=== PATIENT | male | born 1965 | race Caucasian/White ===

== ENCOUNTER 2017-08-19 14:28 | Inpatient (IN) | payer MEDICARE, MEDICAID ==
[~2017-08-19] VITALS: Ht 185.4 cm; Wt 220.0 kg
[2017-08-19 14:32] VITALS: BP 223/164
[2017-08-19] MEDS ORDERED: DIGOXIN250 MCG PO (14:38)
[2017-08-19] MEDS ORDERED: SYNTHROID100 MCG PO ×2 (14:38→20:29)
[2017-08-19] MEDS ORDERED: XANAX1 MG PO (14:39)
[2017-08-19] MEDS ORDERED: NORCO 5-325 TA1 EACH PO (14:39)
[2017-08-19] MEDS ORDERED: LOPRESSOR50 PO (14:40)
[2017-08-19] MEDS ORDERED: COUMADIN 2 MG TA2 M1 PO (14:40)
[2017-08-19] MEDS ORDERED: LASIX 20 MG TAB20 MG PO (14:40)
[2017-08-19] MEDS ORDERED: DULERA 200 MCG/13 GM INH (14:42)
[2017-08-19 15:12] LABS: HEMATOCRIT 34.8 % (42.0-52.0); HEMOGLOBIN 11.1 gm/dL (14.0-18.0); MCH 27.4 pg (26.0-34.0); MCHC 32.1 g/dL (28.0-37.0); MCV 85.3 fL (80.0-100.0); MPV 8.6 fl. (7.2-11.1); NUCLEATED RBCS 0 /100WBC; PLATELET COUNT* 153 thou/uL (150-400); RBC 4.07 mil/uL (4.50-6.00); RDW-CV 19.7 % (10.5-14.5); WBC 6.7 thou/uL (4.0-11.0)
[2017-08-19 15:16] LABS: ANION GAP 10 mmol/L (7-16); BUN 11 mg/dL (7-18); CALCIUM 8.1 mg/dL (8.5-10.1); CHLORIDE 105 mmol/L (98-107); CO2 25 mmol/L (21-32); GLUCOSE 162 mg/dL (70-99); POTASSIUM 3.6 mmol/L (3.5-5.1); SODIUM 140 mmol/L (136-145)
[2017-08-19 15:23] LABS: APTT 31.1 Seconds (25.0-31.3); INR 1.8; PROTIME 17.4 Seconds (9.20-11.50)
[2017-08-19 15:27] LABS: ALBUMIN 3.2 g/dL (3.4-5.0); ALKALINE PHOSPHATASE 91 U/L (46-116); NT-PRO BRAIN NAT PEPTIDE 1759 pg/mL (<300); SGOT 25 U/L (15-37); SGPT 47 U/L (30-65); TOTAL BILIRUBIN 1.6 mg/dL (<0.1-1.0); TOTAL PROTEIN 6.6 g/dL (6.4-8.2); TROPONIN-I LEVEL <0.06 ng/mL (<0.06)
[2017-08-19 15:46] LABS: ABSOLUTE BASOPHILS 0.1 thou/uL (0.0-0.2); ABSOLUTE EOSINOPHILS 0.1 thou/uL (0.0-0.7); ABSOLUTE LYMPHOCYTES 0.5 thou/uL (0.8-5.3); ABSOLUTE MONOCYTES 0.5 thou/uL (0.0-1.2); ABSOLUTE NEUTROPHILS 5.6 thou/uL (1.6-8.1); ANISOCYTOSIS 1+; HYPOCHROMASIA 2+; PLATELET ESTIMATE ADEQUATE
--- NOTE | 2017-08-19 18:10 | NUR ---
PT REFUSED FENTANYL AT THIS TIME, STATES ONLY DILAUDID WORKS.
--- NOTE | 2017-08-19 18:36 | NUR ---
DR GARCIA STATES TO HOLD OFF ON PT'S ESMOLOL AT THIS TIME DUE TO HR COMING DOWN. DILAUDID GIVEN
[2017-08-19 19:44] VITALS: BP 157/90
--- NOTE | 2017-08-19 20:04 | NUR ---
PER COLLETTE SHAIKH RN ESMOLOL HELD PER 'S LAD ORDER.
[2017-08-19 20:05] VITALS: BP 162/115
[2017-08-19] MEDS ORDERED: COUMADIN 5 MG TA5 M1 PO (20:28)
[2017-08-19] MEDS ORDERED: METOPROLOL TAR100 MG PO (20:31)
[2017-08-19 22:36] VITALS: BP 147/103
[2017-08-20] VITALS (7 sets, daily range): BP systolic 127–181; BP diastolic 82–109
[2017-08-20 01:18] LABS: HEMATOCRIT 34.7 % (42.0-52.0); MCH 27.2 pg (26.0-34.0); MCHC 31.9 g/dL (28.0-37.0); MCV 85.5 fL (80.0-100.0); MPV 8.1 fl. (7.2-11.1); RBC 4.05 mil/uL (4.50-6.00); WBC 8.2 thou/uL (4.0-11.0)
[2017-08-20 01:30] LABS: CALCIUM 8.2 mg/dL (8.5-10.1); MAGNESIUM 1.7 mg/dL (1.8-2.4); POTASSIUM 4.1 mmol/L (3.5-5.1)
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
--- NOTE | 2017-08-20 12:21 | NUR ---
CM ASSESSMENT: Pt is A&O. Resides at home with family. Not very forthcoming with info, stating "there have been several people that have asked me these same questions already, can't you just ask them what I said." Pt has a cpap, provided through [employer], though he says that he bought it online. Pt states that he was recently in [place]. Hx of SNF at [facility], [place], operated by [facility] and somewhere in [place]. Pt states that he is independent with ADLs, can cook, clean and continues to drive. Hx of HH, but does not remember the name of the agency and does not want HH again. Goal is to return home once medically stable. Following for dc needs.
--- NOTE | 2017-08-20 12:58 | NUR ---
ASSUMED CARE OF PT AT 0730. PT RESTING IN BED. PT A&0X4. COMPLAINS OF PAIN TO LEFT FOOT AND HEAD. TREATED WITH PRN DILAUDID IVP WITH PARTIAL RELIEF. PT ON 2L NC SAT 96%. DENIES ANY SHORTNESS OF BREATH. PT TRACING AFIB ON THE DIRECTOR TITLE. RATE IN THE 110'S-120'S. PT STATES HE STOPPED TAKING METOPROLOL DUE TO SIDE EFFECTS TO HIS LEFT FOOT. PT STATES HE DOES TAKE DIGOXIN. PT BLOOD PRESSURE ELEVATED AT APPROXIMATELY 1100 AT 181/109. TREATED WITH SCHEDULED HYDRALAZINE 20MG IVP WITH RELIEF. RECHECK BLOOD PRESSURE AT 127/82. HEART RATE CURRENTLY 110. CARDIOLOGY CONSULT IN PLACE. DR ABAD HERE TO SEE PT. ORDERS RECEIVED FOR DIGOXIN AND METOPROLOL PO AND DISCONTINUED HYDRALAZINE. DIGOXIN PO GIVEN. PT REFUSED TO TAKE METOPROLOL. REFER TO EMAR. BILATERAL LE EDEMA NOTED. PT UP AD HEIDI IN ROOM. VOIDS PER URINAL. AM ASSESSMENT CHARTED. MEDICATIONS PER MAR. PT REPOSITIONS SELF IN BED WITH REMINDERS. HOURLY ROUNDING OBSERVED. BED IN LOW POSITION. CALL LIGHT WITHIN REACH. WILL CONTINUE PLAN OF CARE.
[2017-08-20 13:04] LABS: CALCIUM 8.6 mg/dL (8.5-10.1); CREATININE 0.8 mg/dL (0.6-1.3); MAGNESIUM 1.8 mg/dL (1.8-2.4); POTASSIUM 3.3 mmol/L (3.5-5.1)
--- NOTE | 2017-08-20 16:22 | EKG ---
[place] [address] ELECTROCARDIOGRAM REPORT Name: LADONNA MARIA Room: [address] ADM IN .R.#: [id number] Admission: 08/19/17 Attend Phys: Chanel Cruz Discharge: Date of : 63 Report #: [id number] THIS REPORT FOR: //name// [facility] ED Test Date: 2017-08-19 Test Time: 14:35:26 Pat Name: LADONNA MARIA Department: Room: [facility] Gender: Sheriff: Mary Ann SEPULVEDA : 1965 Requested By: Clark Kaye Order Number: [id number] MD: Jovanny Simon Measurements Intervals [place] Rate: 108 P: UT: QRS: -4 QRSD: 89 T: 159 QT: 331 QTc: 444 Interpretive Statements Atrial fibrillation RSR' in V1 or V2, probably normal variant Borderline repolarization abnormality Baseline wander in lead(s) V2,V4 No previous ECG available for comparison Electronically Signed On 08-20-2017 16:21:47 FINANCIAL RISK MANAGER by Jovanny Simon [email or web address] <ELECTRONICALLY SIGNED> By: Jovanny Simon MD, [facility] 08/20/17 1621 1435 1435 Jovanny Simon MD, [facility] /EPI
--- NOTE | 2017-08-20 16:54 | 2DMMODE ---
[place] [address] 2 D/M-MODE ECHOCARDIOGRAM Name: LADONNA MARIA Room: [address] IN [facility]#: [id number] Admission: 08/19/17 Attend Phys: Blaire Acuña Discharge: Date of : 63 Date of Service: 08/20/17 1654 Report #: [id number] THIS REPORT FOR: //name// APPROVED REPORT Study performed: 08/20/2017 14:43:03 EXAM: Comprehensive 2D, Doppler, and color-flow Echocardiogram Patient Location: In-Patient Room #: 220 Status: routine BSA: 3.14 HR: 80 bpm BP: 139/101 mmHg Rhythm: Atrial Fibrillation Other Information Technically limited study due to body habitus. Indications Atrial Fibrillation Dyspnea Echo Enhancing Agent Indication: Endocardial border delineation Agent(s) / Amount(s) Used: Optison 3 cc 2D Dimensions LVEF(%): 70.64 (>50%) IVSd: 13.32 (7-11mm) LVOT Diam: 21.94 (18-24mm) LVDd: 53.47 mm PWd: 11.61 (7-11mm) Ascending Ao: 39.05 (22-36mm) LVDs: 31.87 (25-40mm) Aortic Root: 35.59 mm Huffman's LVEF: 70.64 % Aortic Valve AoV Peak Allan.: 1.49 m/s AO Peak Gr.: 8.89 mmHg LVOT Max P.30 mmHg AO Mean Gr.: 4.72 mmHg LVOT Mean P.28 mmHg LVOT Max V: 1.04 m/s AO V2 VTI: 23.21 cm LVOT Mean V: 0.70 m/s CARMELITA (VTI): 2.83 cm2 LVOT V1 VTI: 17.34 [place] [address] 2 D/M-MODE ECHOCARDIOGRAM Name: LADONNA MARIA Room: [address] IN .R.#: [id number] Admission: 08/19/17 Attend Phys: Blaire Acuña Discharge: Date of : 63 Date of Service: 08/20/17 1654 Report #: [id number] MV Decel. Time: 160.51 ms MV PHT: 46.55 ms MVA (PHT): 4.73 cm2 Pulmonary Valve PV Peak Allan.: 1.01 m/s PV Peak Gr.: 4.07 mmHg Tricuspid Valve TR Peak Gr.: 23.43 mmHg RVSP: 28.00 mmHg Left Ventricle The left ventricle is normal size. There is normal LV segmental wall motion. There is normal left ventricular wall thickness. Left ventricular systolic function is normal. The left ventricular ejection fraction is within the normal range. LVEF is 55-60%. This study is not technically sufficient to allow evaluation of the LV diastolic function due to atrial fibrillation. Right Ventricle The right ventricle is normal size. The right ventricular systolic function is normal. Atria The left atrium size is normal. The right atrium size is normal. Aortic Valve The aortic valve is normal in structure. No aortic regurgitation is present. There is no aortic valvular stenosis. Mitral Valve The mitral valve is normal in structure. There is no mitral valve regurgitation noted. No evidence of mitral valve stenosis. Tricuspid Valve The tricuspid valve is normal in structure. Trace tricuspid regurgitation. The RVSP is ___28____ mmHg. Pulmonic Valve The pulmonary valve is normal in structure. There is no pulmonic valvular regurgitation. Great Vessels The aortic root is normal in size. IVC is normal in size and collapses with >50% [place] [address] 2 D/M-MODE ECHOCARDIOGRAM Name: LADONNA MARIA Room: [address] IN [facility]#: [id number] Admission: 08/19/17 Attend Phys: Blaire Acuña Discharge: Date of : 63 Date of Service: 08/20/17 1654 Report #: [id number] Pericardium There is no pericardial effusion. <Conclusion> The left ventricle is normal size. There is normal left ventricular wall thickness. Left ventricular systolic function is normal. The left ventricular ejection fraction is within the normal range. LVEF is 55-60%. This study is not technically sufficient to allow evaluation of the LV diastolic function due to atrial fibrillation. The right ventricle is normal size. The left atrium size is normal. The aortic valve is normal in structure. The mitral valve is normal in structure. The tricuspid valve is normal in structure. Trace tricuspid regurgitation. The RVSP is ___28____ mmHg. IVC is normal in size and collapses with >50% inspiration There is no pericardial effusion. There is normal LV segmental wall motion. <ELECTRONICALLY SIGNED> By: Jovanny Simon MD, FACC 08/20/17 1654 165 165 Jovanny Simon MD, FACC /INF
--- NOTE | 2017-08-20 16:57 | NUR ---
NO ACUTE CHANGES THROUGHOUT SHIFT. REFER TO CHARTING. CARDIOLOGY HERE TO SEE PT. ORDERS RECEIVED FOR COREG 12.5 MG PO, LASIX 80 MG IVP AND SOLUMEDROL 40 MG IVP, HGB A1C AND ECHO. ECHO RESULTS BACK AT 55-60%. NO PLAN FOR HEART CATH AT THIS TIME PER CARDIOLOGY. POTASSIUM BEING REPLACED PER ELECTROLYTE PROTOCOL. REFER TO EMAR. REDRAW SCHEDULED FOR 2109. PT COMPLAINS OF PAIN TO LEFT FOOT AND HEAD. TREATED WITH PRN DILAUDID IVP AND HYDROCODONE PO WITH PARTIAL RELIEF. PT CONTINUES TO TRACE AFIB ON THE DIRECTOR OF MEDIA. RATE CURRENTLY IN THE 110'S. PT HEART RATE INCREASES TO 120'S-140'S WHEN STANDING TO VOID. ON 2L NC SAT UPPER 90'S. DENIES ANY SHORTNESS OF BREATH. PT WEARS CPAP AT [facility]. MEDICATIONS PER OCT. PT REPOSITIONS SELF IN BED WITH REMINDERS. HOURLY ROUNDING OBSERVED. BED IN LOW POSITION. CALL LIGHT WITHIN REACH. WILL CONTINUE PLAN OF CARE.
[2017-08-21] VITALS: BP 103/61
[2017-08-21 03:16] LABS: GLYCOHEMOGLOBIN (HGB A1C) 6.2 % (4.8-5.6)
[2017-08-21 04:00] VITALS: BP 120/80
--- NOTE | 2017-08-21 07:57 | NUR ---
Pt received hydromorphone for headache and L foot pain per request. Reports that pain overall is improved from previous day. VSS with BP greatly improved from previous day. Pt requested to hold last night's dose of lasix due to timing, and requesting that he receive morning dose and second dose in afternoon rather than late evening so he can sleep/rest. Will continue to monitor.
[2017-08-21 08:00] VITALS: BP 119/86
--- NOTE | 2017-08-21 10:27 | NUR ---
ASSUMED CARE OF PT AT 0730. PT RESTING AT EDGE OF BED. PT A&0X4. COMPLAINS OF PAIN TO LEFT FOOT. TREATED WITH PRN DILAUDID IVP WITH RELIEF. PT STATES HIS HEADACHE IS MUCH BETTER TODAY. PT TRACING AFIB ON THE LAUNDRY OPERATOR. RATE IN THE 100'S-110'S. RATE INCREASES WHEN PT STANDS TO VOID. PT ON 2L NC SAT 93%. PT DENIES ANY SHORTNESS OF BREATH. WHEEZES NOTED TO DAMON AND LLL. DIMINISHED ON THE RIGHT. PT UP SBA TO BATHROOM. GOAL FOR PT IS TO INCREASE ACTIVITY, DIURESIS, PAIN MGMT AND MONITOR BLOOD PRESSURE AND HEART RATE/RHYTHM. AM ASSESSMENT CHARTED. MEDICATIONS PER OCT. PT REPOSITIONS SELF IN BED WITH REMINDERS. HOURLY ROUNDING OBSERVED. BED IN LOW POSITION. CALL LIGHT WITHIN REACH. WILL CONTINUE PLAN OF CARE.
--- NOTE | 2017-08-21 11:27 | CON ---
[address] [address] CONSULTATION Name: LADONNA MARIA Room: [address] IN .R.#: [id number] Admission: 08/19/17 Attend Phys: Chanel Cruz Discharge: Date of : 63 Report #: [id number] THIS REPORT FOR: //name// CC: Saurav Acuña HISTORY OF PRESENT ILLNESS: The patient is a 52-year-old male patient with history of congestive heart failure, history of COPD and morbid obesity. He presented to the hospital with increasing shortness of breath and weight again. He had previous hospitalization with similar complaints, and he was seen by our group in other facility at [facility]. He presented with increasing shortness of breath and labored breathing with wheezes associated with chest pain without specific radiation. Also, he has left foot pain. He was found to be in irregular heart rate upon presentation to the hospital. He has history of obstructive sleep apnea, on CPAP at home, and he told me he set it up at 12 with 2 liter oxygen at night. REVIEW OF SYSTEMS: Positive for headache, especially today when he had the nitropatch. He denied any visual changes. He denies hearing loss. He denies dysphagia or swallowing difficulty. He denied dysuria, frequency, urgency, although his lower extremities are swollen, but he does not think it is worse than baseline for him. ALLERGIES: DILTIAZEM, LEVOFLOXACIN. HOME MEDICATIONS: He is on digoxin, hydrocodone, alprazolam, Lasix, Dulera, Coumadin, levothyroxine, metoprolol. PAST MEDICAL HISTORY: Includes COPD, CHF, atrial fibrillation, obstructive sleep apnea, although he has his CPAP at 12 cm of water with 2 liter oxygen. SOCIAL HISTORY: Per the patient, he never smoked. PHYSICAL EXAMINATION: VITAL SIGNS: On examination, he is on 2 liters oxygen with saturation more than 90%, pulse rate of 90, temperature 36.6, blood pressure 127/82. GENERAL APPEARANCE: Awake, alert, oriented, speaking in full sentences, in no distress. HEENT: Head normocephalic, atraumatic. Pupils are equal, reactive to light. NECK: Supple. CHEST: Diminished air movement bilaterally, prolonged expiratory phase with wheezes. HEART: S1, S2. ABDOMEN: Benign, soft, lax, obese and nontender. No masses felt. EXTREMITIES: Lower extremity edema noted with lymphedema. No calf tenderness. SKIN: Some chronic changes noted in the lower extremities. LYMPHATICS: No palp[place] [address] CONSULTATION Name: CROWLADONNA Chanel Room: [address] IN [facility]#: [id number] Admission: 08/19/17 Attend Phys: Chanel Cruz Discharge: Date of : 63 Report #: [id number] PSYCHIATRIC: Mood and affect, anxious. Good insight and judgment. LABORATORY DATA: His chest x-ray that was done in the ER shows signs of congestive heart failure with pulmonary vascular congestion. His white blood count is 6.7, hemoglobin 11.1, platelet of 153. His INR is 1.8 upon hospitalization with a creatinine of 1. IMPRESSION: 1. Acute hypoxic respiratory failure. 2. Congestive heart failure exacerbation. 3. Chronic obstructive pulmonary disease exacerbation. 4. Atrial fibrillation with rapid ventricular response. 5. Obstructive sleep apnea. I am going to defer diuresis and heart rate management to primary team/Cardiology Service. I agree with his scheduled nebulization treatment. I hear wheezes upon examination. He will benefit from steroids, so I am going to add some steroids for him. He is already on antibiotics, azithromycin and Rocephin, which will be continued. Continue CPAP at night. Continue 12-hour oxygen. Thank you for the consult. We will follow along with you. <ELECTRONICALLY SIGNED> By: Braxton Cr MD 08/21/17 1127 1242 [id number] Cr MD /nt
--- NOTE | 2017-08-21 13:52 | NUR ---
Nutrition: Pt assessed for high BMI. Wt: 472#. PMHx: COPD, CHF, wears CPAP at [facility]. Albumin 3.2. Meds noted. On 2gm Na diet. BMI is skewing nutrition risk. Pt appears at Mild risk at this time.
[2017-08-21 15:30] VITALS: BP 103/70
--- NOTE | 2017-08-21 16:26 | NUR ---
NO ACUTE CHANGES THROUGHOUT SHIFT. REFER TO CHARTING. PT COMPLAINS OF PAIN TO LEFT FOOT. TREATED WITH PRN DILAUDID IVP. REFER TO EMAR. PT HAD CTA CHEST TODAY FOR ELEVATED D-DIMER. AWAITING RESULTS AT THIS TIME. PT CONTINUES TO TRACE AFIB ON THE SUPERVISOR FILTER ASSEMBLY. RATE IN THE 100'S-110'S. CONTINUES TO ELEVATE DURING AMBULATION IN THE 130'S. CONTINUES TO BE ON 2L NC SAT UPPER 90'S. DENIES ANY SHORTNESS OF BREATH. MOTHER AT BEDSIDE THROUGHOUT SHIFT. MEDICATIONS PER OCT. PT REPOSITIONS SELF IN BED WITH REMINDERS. HOURLY ROUNDING OBSERVED. BED IN LOW POSITION. CALL LIGHT WITHIN REACH. WILL CONTINUE PLAN OF CARE.
[2017-08-21 20:00] VITALS: BP 153/92
--- NOTE | 2017-08-21 20:00 | NUR ---
RECEIVED REPORT AND ASSUMED CARE OF PT, ASSESSMENT COMPLETED. O2 ON AT 2L/NC, SOB WITH ACTIVITY. ESTEBAN LOWER LEGS DISCOLORED AND TIGHT 4+ EDEMA. ENCOURAGED TO KEEP ELEVATED. PT STATES THEY ALREADY LOOKS MUCH BETTER. TELEMETRY ON SHOWING A-FIB. WILL CONT TO MONITOR AND ASSIST NEEDED.
[2017-08-22 00:14] VITALS: BP 103/57
[2017-08-22 04:00] VITALS: BP 106/53
--- NOTE | 2017-08-22 07:06 | NUR ---
AWAKE MOST OF NIGHT. PT DOES GET VERY GRUFF WHEN ATTEMPTING TO DISCUSS PAIN MEDICATION. STATES "I WILL TAKE IT IV WHILE HERE BECAUSE I CAN'T HAVE THE PILLS THE WAY I TAKE THEM AT HOME". DISCUSSED LASIX TIMES, PT BECAME AGITATED WITH THIS ALSO. PT WORE OWN CPAP MACHINE WITH O2 BLEED IN. TELEMETRY CONT TO SHOW A-FIB. ADVANCING TOWARDS DISCHARGE GOAL. HOURLY ROUNDING OBSERVED.
[2017-08-22 08:00] VITALS: BP 117/72
[2017-08-22 11:24] VITALS: BP 129/91
[2017-08-22 13:27] LABS: CALCIUM 9.1 mg/dL (8.5-10.1); CREATININE 1.2 mg/dL (0.6-1.3); MAGNESIUM 2.1 mg/dL (1.8-2.4); POTASSIUM 4.2 mmol/L (3.5-5.1)
[2017-08-22 16:26] VITALS: BP 99/66
--- NOTE | 2017-08-22 18:36 | NUR ---
DAY 4 OF STAY. CHRONIC PAIN TO BACK, HEAD, FOOT MANAGED WELL WITH IV PAIN MEDICATION. BO DIET WELL, NO BM THIS SHIFT. CONT IN A FIB ON MONITOR, VITAL SIGNS STABLE. COMPLIANT WITH MEDS AND CARES ORDERED, FAMILY @ BEDSIDE THIS AFTERNOON/EVENING. CONT POC.
[2017-08-22 20:10] VITALS: BP 137/83
[2017-08-23 00:51] VITALS: BP 108/74
[2017-08-23 04:00] VITALS: BP 114/73
[2017-08-23 04:55] LABS: HEMATOCRIT 33.7 % (42.0-52.0); HEMOGLOBIN 10.7 gm/dL (14.0-18.0); MCH 27.3 pg (26.0-34.0); MCHC 31.8 g/dL (28.0-37.0); MPV 8.8 fl. (7.2-11.1); NUCLEATED RBCS 0 /100WBC; PLATELET COUNT* 205 thou/uL (150-400); RBC 3.92 mil/uL (4.50-6.00); RDW-CV 19.4 % (10.5-14.5); WBC 7.5 thou/uL (4.0-11.0)
[2017-08-23 05:02] LABS: ALBUMIN 3.2 g/dL (3.4-5.0); CALCIUM 8.7 mg/dL (8.5-10.1); CREATININE 1.2 mg/dL (0.6-1.3); MAGNESIUM 2.3 mg/dL (1.8-2.4); POTASSIUM 4.4 mmol/L (3.5-5.1); TOTAL BILIRUBIN 0.5 mg/dL (<0.1-1.0); TOTAL PROTEIN 6.6 g/dL (6.4-8.2)
--- NOTE | 2017-08-23 05:50 | NUR ---
ASSUMED CARE AROUND 1930. PT A/OX4, RESTED TONIGHT. TELE MONITOR TRACING AFIB WITH HR 70-110'S. VSS, AFEBRILE. ON 3L NC, HOME CPAP AT BEDSIDE. UP AD HEIDI. VOIDING PER BSC BUCKET AT BEDSIDE. IV SALINE LOCKED. PAIN TREATED WITH PRN IV PAIN MEDS. PT STATES IT WORKS WITHIN 2 MINUTES. NO NEW CONCERNS VOICED DURING NIGHT. CALL LIGHT IN REACH, WILL CONTINUE WITH PLAN OF CARE.
[2017-08-23 06:42] LABS: ABSOLUTE LYMPHOCYTES 0.3 thou/uL (0.8-5.3); ABSOLUTE MONOCYTES 0.2 thou/uL (0.0-1.2); ANISOCYTOSIS 1+; METAMYELOCYTES 1 %; PLATELET ESTIMATE ADEQUATE
[2017-08-23 06:43] LABS: HYPOCHROMASIA 1+
[2017-08-23 08:00] VITALS: BP 136/77
--- NOTE | 2017-08-23 08:00 | NUR ---
PT resting in bed, sleep interruptes , appears o x 4, denies chest pain, states sl SOB with exertion, wearing CPAP, BLE discolored with 3 edema, worse on Left, C/O L foot tenderness, denies pain in either calf when feet dorsiflexed
[2017-08-23 13:16] VITALS: BP 130/79
[2017-08-23 14:28] LABS: INR 1.9; PROTIME 17.9 Seconds (9.20-11.50)
[2017-08-23 16:30] VITALS: BP 129/96
--- NOTE | 2017-08-23 19:26 | NUR ---
pt resting in bed, remains alert o x 4, denies chest pain, SOB, on O2 at 3l nc, c/o leg /back/neck pain. Has requested iv dilaudid PRN, not wanting to take po pain RX, states better relief with iV, up in room today, amb i ndependently, uses walker, up in hallway 2-3 x today, amb over 200 each time. Hoping top D/C in am.
[2017-08-23 20:00] VITALS: BP 105/69
--- NOTE | 2017-08-23 20:00 | NUR ---
RECEIVED REPORT AND ASSUMED CARE OF PT, ASSESSMENT COMPLETED. SITTING UP IN BED WATCHING TV AND DOING HAND CRAFT. O2 ON AT 2L/NC. TELEMETRY ON SHOWING A-FIB. WILL CONT TO MONITOR AND ASSIST NEEDED.
[2017-08-24] VITALS: BP 115/76
[2017-08-24 04:12] VITALS: BP 104/44
--- NOTE | 2017-08-24 06:26 | NUR ---
AWAKE FREQ DURING NIGHT. CONT WANTING IV PAIN MEDS Q3HR FOR C/O LT FOOT, BACK AND NECK PAIN, EFFECTIVE. O2 ON PER HOME CPAP WHEN RESTING. TELEMETRY CONT TO SHOW A-FIB. NO CHANGE IN ASSESSMENT. ADVANCING TOWARDS DISCHARGE GOALS. HOURLY ROUNGING OBSERVED.
[2017-08-24 08:12] VITALS: BP 110/78
[2017-08-24 11:50] VITALS: BP 116/78
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
[2017-08-24 16:05] VITALS: BP 111/57
--- NOTE | 2017-08-24 16:14 | NUR ---
Pt very complementary of staff. Reports feeling better, possible dc to home tomorrow.
[2017-08-24 20:15] VITALS: BP 106/68
--- NOTE | 2017-08-24 20:29 | NUR ---
BEDSIDE REPORT TO RAIL TRACK LAYER FOR CONTINUED CARES. PT REMAINS STABLE, VSS, UP INDEPENDENT. PAIN CONTROLLED, HOURLY ROUNDS COMPLETED. LARGE BM TODAY. GOOD URINE OUTPUT, SEE DOCUMENTATION. NO ACUTE CHANGES THIS SHIFT. PT TO D/C HOME TOMORROW PER ORDERS. PT PROGRESSING TOWARDS GOAL. ASSESSMENTS AND DOCUMENTATION COMPLETED.
[2017-08-25] VITALS: BP 100/68
[2017-08-25 03:00] VITALS: BP 118/75
--- NOTE | 2017-08-25 04:23 | NUR ---
Pt reports feeling "better than I have in over a year." VSS. Medicated for c/o L foot pain prn. Reports decreased edema overall. Blood pressure 100s/60s. Pt states he is hopeful of being discharged today. Will continue to monitor.
[2017-08-25 09:30] VITALS: BP 104/68
[2017-08-25] MEDS ORDERED: CARVEDILOL25 MG PO (11:31)
[2017-08-25] MEDS ORDERED: CATAPRESS3 TRANSDERM (11:31)
[2017-08-25] MEDS ORDERED: ASPIRIN325 PO (11:32)
[2017-08-25] MEDS ORDERED: ACCUPRIL40 MG PO (11:32)
[2017-08-25] MEDS ORDERED: DEMADEX20 MG PO (11:34)
[2017-08-25] MEDS ORDERED: CEFUROXIME250 MG PO (11:37)
[2017-08-25] MEDS ORDERED: PREDNISONE 10 M10 MG PO (11:37)
--- NOTE | 2017-08-25 11:38 | NUR ---
ASSUMED CARES OF PT AT 0700. PT IN BED WITH HOME BIPAP ON. BED IN LOW AND LOCKED POSITION, FALL PRECAUTIONS IN PLACE. CALL BUTTON AND PERSONAL ITEMS IN PT REACH. 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 IV IN LEFT AC PATENT TO FLUSH, NO S/S OF INFECTION. PT UP AT HEIDI, INDEPENDENT. LUNGS CLEAR TO DIMINISHED. HOURLY ROUNDING CONTINUES. PT CLEARED TO DISCHARGE HOME TODAY. PAIN IN FEET, ANKLES AND HEAD CONTROLLED WITH IV PAIN MEDICATION (DILAUDID). BM TODAY, URINE OUTPUT WNL, CLEAR, YELLOW. WILL CONTINUE TO MONITOR PT PROGRESS AND STATUS AND PREPARE PT FOR D/C. PT PROGRESSING TOWARDS GOAL.
[2017-08-25 11:45] VITALS: BP 130/79
[2017-08-25] MEDS ORDERED: DUONEB 2.5-0.5 M3 ML INH (13:24)
[2017-08-25] MEDS ORDERED: LISINOPRIL20 MG PO (13:25)
[2017-08-25] MEDS ORDERED: PULMICORT0.5 MG/2 M INH (14:03)
--- NOTE | 2017-08-25 15:09 | NUR ---
PT DISCHARGED TO HOME VIA W/C WITH NURSING STAFF TO CAR WITH FAMILY. TELE AND IV REMOVED. PT EDUCATED ON STROKES, MEDS, FOLLOW UP APPT, SEE DISCHARGE ORDERS. PT STABLE, TALKATIVE AND READY TO GO HOME. PRESCRIPTIONS AND EDUCATION GIVEN AND PT SIGNED. DISCHARGE COMPLETED AT 1507.
== END 2017-08-25 15:07 | disposition home or self-care (01) | DRG 291 ==
LOC: M.ERS 14:28 → M.TBA-ER 16:30 → M.2W 16:30
PROVIDERS: Emergency Medicine Emergency Medical Services; Internal Medicine; Internal Medicine Critical Care Medicine; Nurse Practitioner Family; ADMIT Internal Medicine
PROC: 5A09357 Assistance with Respiratory Ventilation, Less than 24 Consecutive Hours, Continuous Positive Airway Pressure (ICD-10-PCS; principal; 2017-08-25)
DX: I11.0 Hypertensive heart disease with heart failure (principal); J96.01 Acute respiratory failure with hypoxia; I26.99 Other pulmonary embolism without acute cor pulmonale; J18.9 Pneumonia, unspecified organism; J44.1 Chronic obstructive pulmonary disease with (acute) exacerbation; R65.10 Systemic inflammatory response syndrome (SIRS) of non-infectious origin without acute organ dysfunction; J44.0 Chronic obstructive pulmonary disease with (acute) lower respiratory infection; Z68.44 Body mass index [BMI] 60.0-69.9, adult; I50.41 Acute combined systolic (congestive) and diastolic (congestive) heart failure; I42.9 Cardiomyopathy, unspecified; G47.33 Obstructive sleep apnea (adult) (pediatric); E78.5 Hyperlipidemia, unspecified; E66.01 Morbid (severe) obesity due to excess calories; I48.2 Chronic atrial fibrillation; E11.9 Type 2 diabetes mellitus without complications; E05.90 Thyrotoxicosis, unspecified without thyrotoxic crisis or storm; G89.29 Other chronic pain; M54.9 Dorsalgia, unspecified; Z79.1 Long term (current) use of non-steroidal anti-inflammatories (NSAID); Z79.01 Long term (current) use of anticoagulants; Z79.899 Other long term (current) drug therapy; Z91.14 Patient's other noncompliance with medication regimen; Z85.9 Personal history of malignant neoplasm, unspecified; Z88.8 Allergy status to other drugs, medicaments and biological substances; Z88.1 Allergy status to other antibiotic agents

== ENCOUNTER 2017-09-21 16:17 | Inpatient (IN) | payer MEDICARE, MEDICAID ==
[~2017-09-21] VITALS: Ht 185.4 cm; Wt 211.4 kg
[~2017-09-21 16:17] MED LIST: ACCUPRIL40 MG PO; ASPIRIN325 PO; CARVEDILOL25 MG PO; CATAPRESS3 TRANSDERM; CEFUROXIME250 MG PO; COUMADIN 2 MG TA2 M1 PO; COUMADIN 5 MG TA5 M1 PO; DEMADEX20 MG PO; DIGOXIN250 MCG PO; DULERA 200 MCG/13 GM INH; DUONEB 2.5-0.5 M3 ML INH; LASIX 20 MG TAB20 MG PO; LISINOPRIL20 MG PO; LOPRESSOR50 PO; METOPROLOL TAR100 MG PO; NORCO 5-325 TA1 EACH PO; PREDNISONE 10 M10 MG PO; PULMICORT0.5 MG/2 M INH; SYNTHROID100 MCG PO; XANAX1 MG PO
[2017-09-21 16:21] VITALS: BP 142/96
[2017-09-21 16:50] LABS: HEMOGLOBIN 12.7 gm/dL (14.0-18.0); MCH 27.8 pg (26.0-34.0); MCHC 32.6 g/dL (28.0-37.0); MCV 85.3 fL (80.0-100.0); MPV 8.3 fl. (7.2-11.1); NUCLEATED RBCS 0 /100WBC; PLATELET COUNT* 171 thou/uL (150-400); RBC 4.58 mil/uL (4.50-6.00); RDW-CV 18.5 % (10.5-14.5); WBC 5.5 thou/uL (4.0-11.0)
[2017-09-21 17:01] LABS: ANION GAP 10 mmol/L (7-16); BUN 17 mg/dL (7-18); CALCIUM 8.2 mg/dL (8.5-10.1); CHLORIDE 105 mmol/L (98-107); CO2 27 mmol/L (21-32); GLUCOSE 98 mg/dL (70-99); SODIUM 142 mmol/L (136-145)
[2017-09-21 17:02] LABS: PROTIME 108.1 Seconds (9.20-11.50)
[2017-09-21 17:09] LABS: INR 11.6
[2017-09-21 17:11] LABS: ALBUMIN 3.4 g/dL (3.4-5.0); ALKALINE PHOSPHATASE 95 U/L (46-116); LIPASE 121 U/L (73-393); NT-PRO BRAIN NAT PEPTIDE 764 pg/mL (<300); SGOT 26 U/L (15-37); SGPT 32 U/L (30-65); TOTAL BILIRUBIN 0.5 mg/dL (<0.1-1.0); TROPONIN-I LEVEL <0.06 ng/mL (<0.06)
[2017-09-21 17:40] LABS: ABSOLUTE EOSINOPHILS 0.1 thou/uL (0.0-0.7); ABSOLUTE LYMPHOCYTES 0.4 thou/uL (0.8-5.3); ABSOLUTE MONOCYTES 0.1 thou/uL (0.0-1.2); ABSOLUTE NEUTROPHILS 4.8 thou/uL (1.6-8.1); ATYPICAL LYMPHS 5 %; PLATELET ESTIMATE ADEQUATE
[2017-09-21 19:56] VITALS: BP 154/91
[2017-09-21 20:30] VITALS: BP 180/90
[2017-09-21] MEDS ORDERED: ZOLOFT 50 MG TA50 M1 PO (22:17)
[2017-09-21] MEDS ORDERED: CLONIDINE0.1 PO (22:18)
[2017-09-22] VITALS: BP 142/93
[2017-09-22 01:44] LABS: CALCIUM 8.3 mg/dL (8.5-10.1); POTASSIUM 4.9 mmol/L (3.5-5.1)
[2017-09-22 03:36] VITALS: BP 154/110
[2017-09-22 08:00] VITALS: BP 117/96
--- NOTE | 2017-09-22 11:20 | CON ---
[address] [address] CONSULTATION Name: LADONNA MARIA Room: [place] [address] ADM IN M.R.#: [id number] Admission: 09/21/17 Attend Phys: Chanel Cruz Discharge: Date of : 63 Report #: [id number] THIS REPORT FOR: //name// CC: FAM unknown Blaire Acuña DATE OF SERVICE: 09/22/2017 ATTENDING PHYSICIAN: Dr. Acuña. REASON FOR EVALUATION: Varicella zoster eruption involving the V1 branch of the trigeminal nerve, right side. HISTORY OF PRESENT ILLNESS: Chart reviewed, patient examined. This is a 52-year-old with known history of coronary artery disease, hospitalized as recently as earlier this year, complains of palpitations, developed fairly abrupt onset of pain associated with the perimeter of his right eye. It seemed not to involve with the eye proper, although it did miss some watering of his eye. On evaluation, he was found to have atrial fibrillation, which he has had historically at times. He is empirically started on treatment as noted in a fairly classic zoster form eruption. On questioning, he notes no visual disturbances at this point. He has not had fever, does have significant pain that persists. Chest x-ray did show sort of diffuse changes. There is question of some edema versus interstitial inflammatory infiltrate. Denies GI related complaints. ALLERGIES: LISTED TO LEVOFLOXACIN, DILTIAZEM. CURRENT MEDICATIONS: Include sertraline, valacyclovir 1 gram b.i.d., digoxin, lisinopril, aspirin, levothyroxine, torsemide, clonidine, alprazolam, carvedilol, hydromorphone, metoprolol, ipratropium and albuterol inhaler. PAST MEDICAL HISTORY: As described above, has some known chronic obstructive pulmonary disease, history of cardiomyopathy with congestive heart failure, atrial fibrillation, hypertension. SOCIAL HISTORY: Nonsmoker, no ethanol. FAMILY HISTORY: Noncontributory. REVIEW OF SYSTEMS: As above. PHYSICAL EXAMINATION: GENERAL: He is in moderate distress. He is lucid and cooperative, appears to be fairly well nourished. VITAL SIGNS: Temperature 97.8, pulse 66, respirations 17, [place] [id number] CONSULTATION Name: LADONNA MARIA Room: [address] IN [facility]#: [id number] Admission: 09/21/17 Attend Phys: Chanel Cruz Discharge: Date of : 63 Report #: [id number] 117/96. SKIN: Warm. HEENT: Remarkable for the varicella from eruption involving the right side of the superior aspect of the scalp, periorbital as well. There are no lesions over the tip of the nose. There is some mild injection of the conjunctiva. LUNGS: Generally clear. HEART: Regular. I do not appreciate any murmur. ABDOMEN: Soft, nontender. EXTREMITIES: No cyanosis. GENITOURINARY AND RECTAL: Deferred. LABORATORY DATA: Electrolytes: Sodium 142, potassium 4.9, chloride 105, bicarbonate is 28, BUN and creatinine 18 and 1.0, estimated GFR of 78. Troponin less than 0.06. CBC: White count 5.85, H and H 12.7 and 39.0, platelets of 171. Liver functions unremarkable. Albumin 3.4, total protein of 7.0. Estimated GFR of 78. PT 108.1, INR of 11.6. Chest x-ray, no widespread perihilar interstitial infiltrates. ASSESSMENT AND PLAN: Varicella zoster involving the V1 branch of the trigeminal nerve on the right. We will continue the valacyclovir. At this point, there is no evidence of retinal involvement or scleritis. He is going to be discharged fairly soon. We could have him followup with Ophthalmology for ongoing care. <ELECTRONICALLY SIGNED> By: Junior Lee MD 09/22/17 1120 0943 [id number] Lee MD /nt
[2017-09-22 12:12] VITALS: BP 143/77
--- NOTE | 2017-09-22 13:33 | EKG ---
[place] [address] ELECTROCARDIOGRAM REPORT Name: LADONNA MARIA Room: [place] [address] ADM IN .R.#: [id number] Admission: 09/21/17 Attend Phys: Chanel Cruz Discharge: Date of : 63 Report #: [id number] THIS REPORT FOR: //name// [facility] ED Test Date: 2017-09-21 Test Time: 16:30:36 Pat Name: LADONNA MARIA Department: Room: [facility] Gender: M Continuing Education Instructor: DIAL MOUNTER : 1965 Requested By: Flaco Martinez Order Number: [id number] MD: Jorge Bales Measurements Intervals [place] Rate: 135 P: PA: QRS: -34 QRSD: 100 T: 122 QT: 326 QTc: 489 Interpretive Statements Atrial fibrillation Left axis deviation Repol abnrm suggests ischemia, diffuse leads Compared to ECG 08/19/2017 14:35:26 rate increased Electronically Signed On 09-22-2017 13:33:50 SET MAKING MACHINE OPERATOR by Jorge Bales [email or web address] <ELECTRONICALLY SIGNED> By: Jorge Bales MD, [facility] 09/22/17 1333 1630 29 Jorge Bales MD, [facility] /EPI
[2017-09-22 17:00] VITALS: BP 130/80
[2017-09-22 20:00] VITALS: BP 121/69
[2017-09-23] VITALS: BP 109/67
[2017-09-23 04:00] VITALS: BP 113/72
[2017-09-23 07:52] VITALS: BP 134/96
[2017-09-23] MEDS ORDERED: VALACYCLOVIR1000 MG PO (11:56)
[2017-09-23 12:00] VITALS: BP 107/57; BP 134/96
[2017-09-23] MEDS ORDERED: MAXITROL EYE O3.5 GM OPHTHALMIC (13:55)
--- NOTE | 2017-09-24 14:20 | CON ---
[address] [address] CONSULTATION Name: LADONNA MARIA Room: [address] IN M.R.#: [id number] Admission: 09/21/17 Attend Phys: Chanel Cruz Discharge: 09/23/17 Date of : 63 Report #: [id number] THIS REPORT FOR: //name// CC: FAM unknown Blaire Acuña DATE OF SERVICE: 09/22/2017 PRIMARY PLASTICS PLATER: Dr. Amna Bill. REASON FOR CONSULTATION: Atrial fibrillation. HISTORY OF PRESENT ILLNESS: The patient is a 52-year-old morbidly obese man with history of right heart failure and fluid retention as well as atrial fibrillation. He is in persistent atrial fibrillation, known problem for this patient. He denies heart racing, skipping sensation. For the most part, he is asymptomatic with it. He is anticoagulated with warfarin. He denies neuro symptoms, slurred speech, numbness or weakness. With his atrial fibrillation, he feels he has been in atrial fibrillation for the better part of 5 years. He has no complaints of bleeding on his warfarin. He has no neuro symptoms of slurred speech, numbness, weakness or visual changes. PAST MEDICAL HISTORY: Significant for trigeminal neuralgia thought to be due to herpes zoster. Other medical problems include atrial fibrillation, heart failure and morbid obesity. He did have an echocardiogram in August of this year, which demonstrated grossly normal LV function, ejection fraction 55-60% without significant valvular abnormalities. CURRENT MEDICATIONS: Include valacyclovir, neomycin, Zoloft, lisinopril 40 mg daily, digoxin 0.25 mg daily, torsemide 20 mg p.o. b.i.d., carvedilol 25 mg p.o. b.i.d., Lopressor 100 mg p.o. b.i.d. REVIEW OF SYSTEMS: GASTROINTESTINAL: No nausea, vomiting, hematemesis. ENDOCRINE: Positive obesity. NEUROLOGICAL: Denies slurred speech, numbness or weakness. CARDIOVASCULAR: No chest pain, no shortness of breath, no palpitations. HEMATOLOGIC: [place] [address] CONSULTATION Name: LADONNA MARIA Room: [address]#: [id number] Admission: 09/21/17 Attend Phys: Chanel Cruz Discharge: 09/23/17 Date of : 63 Report #: [id number] RENAL: No kidney failure. SKIN: No rashes. MUSCULOSKELETAL: Positive edema. PHYSICAL EXAMINATION: VITAL SIGNS: Blood pressure is 143/77, pulse 66 in AFib, temperature 36.7. GENERAL: A morbidly obese, middle aged male, his weight is 210 kg. He is alert, no apparent distress. HEENT: Eyes are intact. No facial asymmetry. NECK: No jugular venous distention. CARDIOVASCULAR: Irregular, tachycardic. I cannot hear a murmur. LUNGS: Diminished breath sounds. ABDOMEN: Nontender. EXTREMITIES: There is a 1-2+ pitting edema. There is brawny edema. NEUROLOGIC: No focal deficits. PSYCHIATRIC: The patient has appropriate mood and affect. DIAGNOSTIC DATA: ECG demonstrates atrial fibrillation with a controlled ventricular response, nonspecific ST-segment changes. LABORATORY DATA: INR was 11.6 on presentation. Hemoglobin is 12.7, white blood count 5.5, platelet count is 171,000. Digoxin level 0.6. IMPRESSION: 1. Atrial fibrillation. This is rate controlled. He is asymptomatic. He has a history of preserved left ventricular systolic function based on echocardiogram test last year. 2. Right heart failure. I will continue diuretics. 3. Coagulopathy. I would hold his anticoagulation. He is not actively bleeding. Overall, he remains a higher stroke risk because of his sedentary lifestyle and has a questionable deep venous thrombosis history as well. <ELECTRONICALLY SIGNED> By: Jeremy Cisneros MD, FACC 09/24/17 1420 1456 [id number] Cisneros MD, FACC /nt
== END 2017-09-23 15:15 | disposition home or self-care (01) | DRG 291 ==
LOC: M.ERS 16:17 → M.TBA-ER 17:25 → M.2W 17:25
PROVIDERS: Emergency Medicine; ADMIT Internal Medicine
DX: I13.0 Hypertensive heart and chronic kidney disease with heart failure and stage 1 through stage 4 chronic kidney disease, or unspecified chronic kidney disease (principal); I50.43 Acute on chronic combined systolic (congestive) and diastolic (congestive) heart failure; J96.00 Acute respiratory failure, unspecified whether with hypoxia or hypercapnia; B02.22 Postherpetic trigeminal neuralgia; Z68.44 Body mass index [BMI] 60.0-69.9, adult; D68.9 Coagulation defect, unspecified; I42.9 Cardiomyopathy, unspecified; N18.2 Chronic kidney disease, stage 2 (mild); I48.91 Unspecified atrial fibrillation; I11.0 Hypertensive heart disease with heart failure; J44.9 Chronic obstructive pulmonary disease, unspecified; I25.10 Atherosclerotic heart disease of native coronary artery without angina pectoris; E66.01 Morbid (severe) obesity due to excess calories; I16.0 Hypertensive urgency; E11.9 Type 2 diabetes mellitus without complications; G47.33 Obstructive sleep apnea (adult) (pediatric); Z79.01 Long term (current) use of anticoagulants; Z79.52 Long term (current) use of systemic steroids; Z79.82 Long term (current) use of aspirin; Z79.899 Other long term (current) drug therapy; Z88.8 Allergy status to other drugs, medicaments and biological substances

== ENCOUNTER 2017-11-10 21:54 | Inpatient (IN) | payer MEDICARE, MEDICAID ==
[~2017-11-10] VITALS: Ht 182.9 cm; Wt 209.1 kg
[~2017-11-10 21:54] MED LIST changes: +CLONIDINE0.1 PO; +MAXITROL EYE O3.5 GM OPHTHALMIC; +VALACYCLOVIR1000 MG PO; +ZOLOFT 50 MG TA50 M1 PO
[2017-11-10 21:57] VITALS: BP 182/143
[2017-11-10 22:26] LABS: HEMATOCRIT 39.1 % (42.0-52.0); HEMOGLOBIN 12.4 gm/dL (14.0-18.0); MCH 27.3 pg (26.0-34.0); MCHC 31.8 g/dL (28.0-37.0); MCV 85.8 fL (80.0-100.0); MPV 8.3 fl. (7.2-11.1); NUCLEATED RBCS 0 /100WBC; PLATELET COUNT* 189 thou/uL (150-400); RBC 4.56 mil/uL (4.50-6.00); RDW-CV 19.4 % (10.5-14.5); WBC 7.1 thou/uL (4.0-11.0)
[2017-11-10 22:35] LABS: ANION GAP 9 mmol/L (7-16); BUN 13 mg/dL (7-18); CALCIUM 8.5 mg/dL (8.5-10.1); CHLORIDE 107 mmol/L (98-107); CO2 29 mmol/L (21-32); CREATININE 0.9 mg/dL (0.6-1.3); GLUCOSE 113 mg/dL (70-99); POTASSIUM 4.1 mmol/L (3.5-5.1); SODIUM 145 mmol/L (136-145)
[2017-11-10 22:39] LABS: APTT 47.7 Seconds (25.0-31.3); PROTIME 52.8 Seconds (9.20-11.50)
[2017-11-10 22:42] LABS: INR 5.6
[2017-11-10 22:54] LABS: ABSOLUTE BASOPHILS 0.1 thou/uL (0.0-0.2); ABSOLUTE EOSINOPHILS 0.2 thou/uL (0.0-0.7); ABSOLUTE LYMPHOCYTES 1.1 thou/uL (0.8-5.3); ABSOLUTE MONOCYTES 0.5 thou/uL (0.0-1.2); ABSOLUTE NEUTROPHILS 5.2 thou/uL (1.6-8.1)
[2017-11-10 22:55] LABS: ALBUMIN 3.3 g/dL (3.4-5.0); ALKALINE PHOSPHATASE 98 U/L (46-116); ANISOCYTOSIS 1+; CK-MB MASS < 0.5 ng/mL (<0.5-3.6); LIPASE 65 U/L (73-393); MAGNESIUM 1.7 mg/dL (1.8-2.4); NT-PRO BRAIN NAT PEPTIDE 1503 pg/mL (<300); PLATELET ESTIMATE ADEQUATE; SGOT 51 U/L (15-37); SGPT 42 U/L (30-65); TOTAL PROTEIN 7.1 g/dL (6.4-8.2); TROPONIN-I LEVEL <0.06 ng/mL (<0.06)
[2017-11-11] VITALS (10 sets, daily range): BP systolic 93–197; BP diastolic 40–147
--- NOTE | 2017-11-11 05:19 | NUR ---
Patient came to floor from in ER. Nurse received report from Tonya at 2347, 11/10/2017. On arrival to floor patient blood pressure and heart rate was elveated. Doctor notified, Doctor oropeza order metoprolol 5mg one time dose iv push. Patient also complain of pain and lack of relief from the hydrocodone dose. Doctor notified, Doctor Oropeza ordered tramadol 50 q4 prn po. Patient blood pressure and heart rate decreased. Call light within reach, fall precautions in place, hourly rounding observed. Patient rested in bed. Patient on tele monitor tracing afib.
[2017-11-11] MEDS ORDERED: NORCO 10-325 T1 EACH PO (05:30)
[2017-11-11 09:50] LABS: PROTIME 39.1 Seconds (9.20-11.50)
[2017-11-11 09:56] LABS: INR 4.1
--- NOTE | 2017-11-11 10:04 | NUR ---
ASSUMED CARE OF PT AROUND 0730 THIS AM. REFER TO ASSESSMENT. PT HAS CONCERNS ABOUT PAIN THIS AM. PT GIVEN HOME PRN PAIN MEDICATION. PT REQUESTING 1 MG IVP DILAUDID THIS AM. PHYSICIAN NOTIFIED. NO OTHER CONCERNS AT THIS TIME. CLWR. WCTM.
--- NOTE | 2017-11-11 14:13 | NUR ---
MET WITH PT TO DISCUSS HOME SITUATION/DC PLANNING. PT KNOWN TO CM FROM PREVIOUS HOSPITAL STAYS. PT LIVES WITH FAMILY, DIDN'T STATE 'WHO'. HE HAS O2, CPAP AND NEBULIZER HE THINKS THRU [facility]. ONLY WEARS 2L THRU HIS CPAP AT NIGHT. PT HASN'T HAD HH. HE FOLLOWS WITH DR CARTWRIGHT IN [place]. HE ALSO SEES AN ONCOLOGIST AT [place]/DR ROSSI WELL A ARCHEOLOGY FACULTY MEMBER AT [place]. DISCUSSED AGAIN WITH PT THAT HE IS INTO HIS LIFETIME RESERVE DAYS IN HIS MEDICARE AND THAT IF HE USES THE REMAINDER OF THOSE THAT HIS MEDICAID WOULD BECOME HIS PRIMARY PAYER. HE VOICED UNDERSTANDING. ORDER RECEIVED TO DISCUSS PALLIATIVE CARE WITH PT. HE HAS HX OF LUNG CA AND CHF WITH MULTIPLE ADMISSIONS OVER LAST SEVERAL MONTHS. EXPLAINED PALLIATIVE CARE AND BENEFITS. HE IS OPEN TO TALK WITH SOMEONE, DISCUSSED OPTIONS, HAD NO PREFERENCE. CALLED AND FAXED REFERRAL TO [facility]. [facility] CAME TO SPEAK WITH PT AND THE PT ASKED THAT HE COME BACK TOMORROW AFTERNOON. HE WAS AGREEABLE TO THAT. WILL FOLLOW ALONG AND ASSIST WITH DC PLAN
--- NOTE | 2017-11-11 15:56 | 2DMMODE ---
[place] [address] 2 D/M-MODE ECHOCARDIOGRAM Name: LADONNA MARIA Room: [address] IN [facility]#: [id number] Admission: 11/10/17 Attend Phys: Dasha Oropeza, Discharge: Date of : 63 Date of Service: 11/11/17 1556 Report #: [id number] THIS REPORT FOR: //name// APPROVED REPORT Study performed: 11/11/2017 14:46:18 EXAM: Limited 2D Echocardiogram with contrast Patient Location: In-Patient Room #: [facility] Status: routine BSA: 3.04 HR: 84 bpm BP: 173/96 mmHg Rhythm: Atrial Fibrillation Other Information Study Quality: Good Indications Congestive Heart Failure Atrial Fibrillation Dyspnea Chest Pain Echo Enhancing Agent Indication: Endocardial border delineation Agent(s) / Amount(s) Used: Optison 3 cc 2D Dimensions LVEF(%): 67.69 (>50%) IVSd: 17.45 (7-11mm) LVDd: 53.67 mm PWd: 12.67 (7-11mm) LVDs: 33.27 (25-40mm) Aortic Root: 36.09 mm Huffman's LVEF: 67.69 % Left Ventricle The left ventricle is normal size. There is normal LV segmental wall motion. There is normal left ventricular wall thickness. The left ventricular systolic function is normal. The left ventricular ejection fraction is within the normal range. LVEF is 55-60%. This study is not technically sufficient to allow evaluation of the LV diastolic function due to atrial fibrillation. [address] [address] 2 D/M-MODE ECHOCARDIOGRAM Name: LADONNA MARIA Room: [address] IN [facility].#: [id number] Admission: 11/10/17 Attend Phys: Dasha Oropeza, Discharge: Date of : 63 Date of Service: 11/11/17 1556 Report #: [id number] Right Ventricle The right ventricle is normal size. The right ventricular systolic function is normal. Atria The left atrium size is normal. Right atrium is dilated. Aortic Valve The aortic valve is normal in structure. No aortic regurgitation is present. There is no aortic valvular stenosis. Mitral Valve The mitral valve is normal in structure. There is no mitral valve regurgitation noted. No evidence of mitral valve stenosis. Tricuspid Valve The tricuspid valve is normal in structure. There is no tricuspid valve regurgitation noted. Pulmonic Valve The pulmonary valve is normal in structure. There is no pulmonic valvular regurgitation. Great Vessels The aortic root is normal in size. Pericardium There is no pericardial effusion. <Conclusion> The left ventricle is normal size. There is normal left ventricular wall thickness. The left ventricular systolic function is normal. The left ventricular ejection fraction is within the normal range. LVEF is 55-60%. This study is not technically sufficient to allow evaluation of the LV diastolic function due to atrial fibrillation. The left atrium size is normal. The aortic valve is normal in structure. The mitral valve is [place] [address] 2 D/M-MODE ECHOCARDIOGRAM Name: LADONNA MARIA Room: [address]#: [id number] Admission: 11/10/17 Attend Phys: Dasha Oropeza, Discharge: Date of : 63 Date of Service: 11/11/17 1556 Report #: [id number] There is no pericardial effusion. There is normal LV segmental wall motion. <ELECTRONICALLY SIGNED> By: Jovanny Simon MD, FACC 11/11/17 1556 1556 155 Jovanny Simon MD, FACC /INF
--- NOTE | 2017-11-11 16:16 | EKG ---
[place] [address] ELECTROCARDIOGRAM REPORT Name: LADONNA MARIA Room: [address] ADM IN M.R.#: [id number] Admission: 11/10/17 Attend Phys: Dasha Oropeza MD Discharge: Date of : 63 Report #: [id number] THIS REPORT FOR: //name// [facility] ED Test Date: 2017-11-10 Test Time: 22:02:51 Pat Name: LADONNA MARIA Department: Room: [facility] Gender: M Contract Runner: UNKNOWN : 1965 Requested By: Anselmo Suarez Order Number: [id number] MD: Jovanny Simon Measurements Intervals [place] Rate: 126 P: ND: QRS: -36 QRSD: 92 T: 32 QT: 275 QTc: 399 Interpretive Statements Atrial fibrillation Repol abnrm suggests ischemia, diffuse leads Baseline wander in lead(s) II,III,aVR,aVL,aVF,V1,V2,V3,V4,V5,V6 Compared to ECG 09/21/2017 16:30:36 Possible ischemia still present Electronically Signed On 11-11-2017 16:16:46 CDT by Jovanny Simon [email or web address] <ELECTRONICALLY SIGNED> By: Jovanny Simon MD, FAC 11/11/17 1616 01 01 Jovanny Simon MD, FAC /EPI
--- NOTE | 2017-11-11 18:01 | NUR ---
PT SOMEWHAT PROGRESSING TOWARDS GOALS. VSS. PAIN DIFFICULT TO MANAGE THIS SHIFT WITH HOME MED DOSE HYDROCODONE AND IVP FENTANYL FOR BREAKTHRU. PT STATES HE ONLY WANTS DILAUDID. TELE REMAINS AFIB WITH RATE MORE CONTROLLED. NO OTHER CONCERNS AT THIS TIME. CLWR. WCTM.
[2017-11-12 00:10] VITALS: BP 170/113
[2017-11-12 04:09] VITALS: BP 156/110
--- NOTE | 2017-11-12 04:43 | NUR ---
ASSUMED PT CARE AT 1930. NURSING ASSESSMENT COMPLETED AT START OF SHIFT. PT C/O PAIN THIS SHIFT, UNRELIEVED WITH CURRENT PAIN MEDICATIONS, PT REQUESTED DILAUDED THIS SHIFT, STATES THAT IT IS THE ONLY MEDICATION THAT HELPS WITH HIS PAIN AND BLOOD PRESSURE. REITERATED TO PT THAT PER LATEST PHYSICIAN PROGRESS NOTE, PT WILL NOT BE GETTING DILAUDED, AND THAT HE COULD ADDRESS IT AGAIN WITH PHYCISIAN IN THE MORNING. OFFERED TO ASSIST PT TO REPOSITION, AND ALTERNATE MEDICATIONS. DR. YEPEZ PAGED FOR PT C/O HEADACHE AND REQUEST OF NAPROXEN. NEW ORDER RECEIVED. PT AFIB WITH HR IN THE 70'S TO LOW 100'S. HOURLY ROUNDING COMPLETED, CALL LIGHT WITHIN REACH. PT NOT PROGRESSING TOWARDS GOALS THIS SHIFT.
[2017-11-12 05:32] LABS: PROTIME 24.3 Seconds (9.20-11.50)
[2017-11-12 05:34] LABS: INR 2.5
[2017-11-12 05:47] LABS: CALCIUM 8.5 mg/dL (8.5-10.1); CREATININE 0.8 mg/dL (0.6-1.3); MAGNESIUM 1.7 mg/dL (1.8-2.4); POTASSIUM 4.1 mmol/L (3.5-5.1)
[2017-11-12 08:00] VITALS: BP 157/104
[2017-11-12 12:06] VITALS: BP 142/93
--- NOTE | 2017-11-12 13:16 | NUR ---
ASSUMED CARE OF PT AT 0730. PT RESTING IN BED. PT A&0X4. PT COMPLAINS OF PAIN TO LEFT FOOT AND HEAD. PT REQUESTING INCREASE/ CHANGE IN PAIN MEDICATION. DR LINARES HERE TO SEE PT. FENTANYL DOSAGE INCREASED. REFER TO EMAR. PT TREATED FOR PAIN WITH PARTIAL RELIEF. PT BLOOD PRESSURE CONTINUES TO BE ELEVATED- CLONIDINE INCREASED TO 0.2MG. WILL MONITOR CLOSELY. PT TRACING AFIB ON THE INDEPENDENT LIVING INSTRUCTOR. RATE CONTROLLED. +2 EDEMA NOTED TO BILATERAL LE'S. PT ON 2L NC SAT 96%. DENIES ANY SHORTNESS OF BREATH. PT WEARS CPAP AT [facility]. PT UP WITH 1 ASSIST TO VOID. PT MAGNESIUM 1.7, BEING REPLACED PER ELECTROLYTE PROTOCOL. REFER TO EMAR. PT ON 2,000 ML FLUID RESTRICTION. CM CONSULTED FOR HOSPICE FOR STAGE 4 LUNG CANCER. HOSPICE HERE TO SPEAK TO PT AND PT REFUSED TO SPEAK WITH HOSPICE. AM ASSESSMENT CHARTED. MEDICATIONS PER OCT. PT REPOSITIONS SELF WITH REMINDERS. HOURLY ROUNDING OBSERVED. BED IN LOW POSITION. CALL LIGHT WITHIN REACH. WILL CONTINUE PLAN OF CARE.
--- NOTE | 2017-11-12 13:34 | NUR ---
BRADFORD SPOKE TO [facility]YN WITH [facility] AND HE INFORMS THAT HE CAME TO THE HOSPITAL TO DO THE PALLIATIVE CONSULT, AND PATIENT DECLINED. PATIENT STATES THAT HE IS NO LONGER INTERESTED IN PALLIATIVE. [facility] INFORMS THAT HE IS AVAILABLE TO DO THE PALLIATIVE CONSULT IF THE PATIENT CHANGES HIS MIND. BRADFORD SPOKE TO THE PATIENT TO DISCUSS THIS AND HE STATES 'I JUST DON'T WANT TO DO IT'. CM WILL REMAIN AVAILABLE TO ASSIST AND FOLLOW NEEDED.
[2017-11-12 16:43] VITALS: BP 141/82
--- NOTE | 2017-11-12 18:40 | NUR ---
NO ACUTE CHANGES THROUGHOUT SHIFT. REFER TO CHARTING. PT BLOOD PRESSURE BETTER THROUGHOUT SHIFT WITH INCREASE IN CLONIDINE TO 0.2 MG. REFER TO CHARTING. PT PAIN BETTER CONTROLLED WELL WITH INCREASE IN FENTANYL TO 100 MCG IVP. MAGNESIUM BEING REPLACED PER ELECTROLYTE PROTOCOL. REDRAW SCHEDULED FOR 2144. PT ON 2,000 ML FLUID RESTRICTION. MOTHER AT BEDSIDE THIS AFTERNOON. CONTINUES TO TRACE AFIB ON THE LOCK MASTER. ON 2L NC SAT UPPER 90'S. DENIES ANY SHORTNESS OF BREATH. PT UP WITH 1 ASSIST AND CANE. PT RESTARTED BACK ON COUMADIN TONIGHT, INR 2.5. MEDICATIONS PER OCT. PT REPOSITIONS SELF WITH REMINDERS. HOURLY ROUNDING OBSERVED. BED IN LOW POSITION. CALL LIGHT WITHIN REACH. WILL CONTINUE PLAN OF CARE.
[2017-11-12 19:50] VITALS: BP 139/86
[2017-11-13] VITALS (7 sets, daily range): BP systolic 125–167; BP diastolic 71–101
[2017-11-13 05:12] LABS: INR 2.1; PROTIME 20.2 Seconds (9.20-11.50)
[2017-11-13 05:22] LABS: CALCIUM 8.2 mg/dL (8.5-10.1); CREATININE 0.9 mg/dL (0.6-1.3); MAGNESIUM 1.8 mg/dL (1.8-2.4); POTASSIUM 3.9 mmol/L (3.5-5.1)
--- NOTE | 2017-11-13 05:58 | NUR ---
END SHIFT: PT RESTED WELL. C/O PAIN IN L FOOT AND HEAD RELIEVED BY PAIN MEDICATION. BP HAS INCREASED THIS AM WITH A NEED FOR PRN HYDRALAZINE. UP SELF WITH NO PROBLEMS. AFIB ON MONITOR- RATE CONTROLLED. TOLERATING 2L NC. PT REFUSING PT EDUCATION ON ELEVATED SUGARS. VOIDING WITHOUT DIFFICUTLY. PT STATES HIS BREATHING "FEELS BETTER." SAFETY PRECAUTIONS IN PLACE. CALL LIGHT IN REACH. PERFORMED HOURLY ROUNDING. WILL CONT TO MONITOR.
--- NOTE | 2017-11-13 06:51 | NUR ---
PT HAS BECOME INCREASINGLY CONFUSED OVER THE LAST 15 MIN. PULLING AT LINES, CATHETER AND ASKING FOR US TO CALL THE POLICE. HE HAS BECOME SOMEWHAT AGGRESSIVE IN NATURE- HITTING AND GRABBING. HE HAS ALSO BECOME VERY DIFFICULT TO RE-ORIENT. WILL CONT TO CLOSELY MONITOR.
--- NOTE | 2017-11-13 12:52 | NUR ---
Nutrition: Pt admitted with chest pain. H/o COPD, CHF, stage IV lung ca, OBE, afib. RX: warfarin, lasix. Wt is in usual range; 461#. 2gm Na diet. Palliative care consult for outpatient. No nutrition interventions needed at this time. Please consult if nutrition needs arise.
--- NOTE | 2017-11-13 18:17 | NUR ---
ASSUMED PT CARE AT 0730, FULL ASSESMENT DONE CHARTED. PT A/O X4, C/O PAIN IN HEAD AND LEFT FOOT. PT REQUESTING PAIN MEDS FREQUENTLY. PT STATES THE IV PAIN MEDS HELP HIS HEAD BUT NOT THE PO HYDROCODONE. PT RESTING IN BED MOST OF THE DAY. HOPING TO GO HOME TOMORROW. HE GETS UP TO BSC AD HEIDI. VSS, AFIB ON THE MONITOR. PT IS REFUSING TO LET NURSE TURN PT OR TO ASSESS SKIN. HE HAS SCABS ON BOTH KNEES THAT HE STATES ARE FROM A FALL PRIOR TO COMING TO THE HOSPITAL. PT DID HAVE SMALL AMOUNT OF BLOOD DRAINING FROM EAR THIS AFTERNOON. PT STATES THIS HAS HAPPENED BEFORE. PT WEARS HOME CPAP NEEDED. USES CALL LIGHT APPROPRIATLY. FALL PRECATUOINS MAINTAINED. WILL CONTINUE WITH PLAN OF CARE.
[2017-11-14 04:09] VITALS: BP 128/81
--- NOTE | 2017-11-14 05:07 | NUR ---
END SHIFT: PT RESTED WELL. C/O CHRONIC PAIN IN L FOOT, AND HEADACHE RELIEVED BY PAIN MEDICATION. AFIB ON MONITOR. 2+ LE EDEMA NOTED. 2L NC VS RA VS CPAP. ASSESSMENT UNCHANGED. VSS. SAFETY PRECAUTIONS IN PLACE. VSS. PERFPORMED HOURLY ROUNDING. WILL CONT TO MONITOR
[2017-11-14 05:17] LABS: INR 2.4; PROTIME 22.7 Seconds (9.20-11.50)
[2017-11-14 05:20] LABS: CALCIUM 8.2 mg/dL (8.5-10.1); MAGNESIUM 1.8 mg/dL (1.8-2.4); POTASSIUM 3.7 mmol/L (3.5-5.1)
[2017-11-14 08:15] VITALS: BP 141/91
--- NOTE | 2017-11-14 08:20 | NUR ---
RECEIVED REPORT AND ASSUMED CARE AT 0730. VSS. CARDIAC MONITORING IN PLACE. PT DENIES ANY COMPLAINTS OF PAIN. ASSESMENT COMPLETED. DISCUSSED PLAN OF CARE WITH PT, VERBALIZED UNDERSTANDING. CALL LIGHT WITHIN REACH, BED IN LOWEST POSITION. PT UP AD HEIDI IN ROOM WITH CANE. WILL CONTINUE TO MONITOR FOR REMAINDER OF THE SHIFT.
[2017-11-14] MEDS ORDERED: CATAPRES0.2 MG PO (10:09)
[2017-11-14] MEDS ORDERED: PREDNISONE 10 M10 MG PO (10:09)
[2017-11-14] MEDS ORDERED: DEMADEX20 MG PO (10:09)
[2017-11-14] MEDS ORDERED: AZITHROMYCIN 2250 MG PO (10:09)
[2017-11-14 11:39] VITALS: BP 163/100
[2017-11-14 12:03] VITALS: BP 163/100
== END 2017-11-14 13:08 | disposition home or self-care (01) | DRG 190 ==
LOC: M.ERS 21:54 → M.TBA-ER 23:35 → M.2W 23:35
PROVIDERS: Family Medicine; Internal Medicine; ADMIT Internal Medicine
DX: J44.1 Chronic obstructive pulmonary disease with (acute) exacerbation (principal); I50.33 Acute on chronic diastolic (congestive) heart failure; Z68.44 Body mass index [BMI] 60.0-69.9, adult; J98.11 Atelectasis; G89.29 Other chronic pain; I11.0 Hypertensive heart disease with heart failure; F32.9 Major depressive disorder, single episode, unspecified; F11.90 Opioid use, unspecified, uncomplicated; I48.2 Chronic atrial fibrillation; Z51.5 Encounter for palliative care; E66.01 Morbid (severe) obesity due to excess calories; Z79.01 Long term (current) use of anticoagulants; Z85.118 Personal history of other malignant neoplasm of bronchus and lung; Z87.891 Personal history of nicotine dependence; Z88.1 Allergy status to other antibiotic agents; Z88.8 Allergy status to other drugs, medicaments and biological substances; Z79.899 Other long term (current) drug therapy